=== PATIENT | male | born 1955 | race Caucasian/White ===

== ENCOUNTER 2017-05-05 02:10 | Emergency (ER) | payer OTHER ==
[~2017-05-05] VITALS: Ht 165.1 cm; Wt 54.9 kg
[~2017-05-05 02:10] MED LIST: AVENTYL,PAMELOR25 MG PO; DIOVAN HCT 11 TABLE1; ENDOCET 5-3251 EACH PO; ENDOCET 7.5-501 EACH PO; FENTANYL1 EAC2; HYDROCHLOROTH12.5 M3 PO; METFORMIN HCL500 MG; NITROGLYCERIN0.4 MG; PLAVIX75 MG; PLETAL100 MG; PRILOSEC40 MG; RANITIDINE HCL300 M1 PO; SIMVASTATIN40 MG; TOPROL XL50 MG; VANQUISH CAPLE1 EACH
[2017-05-05 02:53] LABS: HEMATOCRIT 38.3 % (38.0-50.0); HEMOGLOBIN 12.9 G/DL (12.5-16.6); MCH 27.6 PG (29.0-34.0); MCHC 33.7 G/DL (30.0-36.0); MCV 81.8 FL (86-99); PLATELET COUNT 425 K/uL (156-360); RBC DIS.WIDTH-CV 14.4 % (11.8-14.6); RBC DIS.WIDTH-SD 42.5 % (39-53); RED BLOOD COUNT 4.68 M/uL (4.00-5.50); WHITE BLOOD COUNT 11.6 K/uL (4.1-10.2)
[2017-05-05 03:03] LABS: CHLORIDE 101 mEq/L (99-109); POTASSIUM 2.8 mEq/L (3.7-5.4); SODIUM 142 mEq/L (136-147)
[2017-05-05 03:04] LABS: GLUCOSE 109 mg/dL (70-99)
[2017-05-05 03:08] LABS: CREATININE 1.2 mg/dL (0.6-1.3); GFR ESTIMATE (CALCULATED) > 59 mL/min/ (58.99-99999)
[2017-05-05 03:09] LABS: UREA NITROGEN (BUN) 18 mg/dL (9-23)
[2017-05-05] MEDS ORDERED: K-DUR20 MEQ PO (04:49)
[2017-05-05 05:09] LABS: APPEARANCE CLEAR ((CLEAR)); BILIRUBIN NEGATIVE; BLOOD SMALL; COLOR YELLOW ((YELLOW)); GLUCOSE (STRIP) NEGATIVE; KETONES NEGATIVE; LEUKOCYTES NEGATIVE; NITRITE NEGATIVE; PROTEIN (STRIP) NEGATIVE; SPECIFIC GRAVITY 1.035 (1.000-1.030); UROBILINOGEN 0.2 MG/DL (0.2-1.0)
[2017-05-05 05:17] LABS: BACTERIA RARE /HPF; EPITHELIAL CELLS NONE SEEN /HPF; HYALINE CASTS 0-5 /LPF; MUCUS TRACE /LPF; RED BLOOD CELLS 0-5 /HPF (0-5); UCUL ADDED? NO; WHITE BLOOD CELLS 0-5 /HPF (0-5)
[2017-05-05 07:00] VITALS: BP 153/96
== END 2017-05-05 07:52 | disposition home or self-care (01) ==
LOC: EME → EDBD 02:10 → EME 02:10
PROVIDERS: Nurse Practitioner Family
DX: I88.0 Nonspecific mesenteric lymphadenitis (principal); R10.31 Right lower quadrant pain; E87.6 Hypokalemia; I25.2 Old myocardial infarction; M79.7 Fibromyalgia; J44.9 Chronic obstructive pulmonary disease, unspecified; I10 Essential (primary) hypertension; E11.9 Type 2 diabetes mellitus without complications; K21.9 Gastro-esophageal reflux disease without esophagitis; Z89.611 Acquired absence of right leg above knee; Z88.2 Allergy status to sulfonamides; Z87.891 Personal history of nicotine dependence; Z79.02 Long term (current) use of antithrombotics/antiplatelets
CPT/HCPCS: 74177; 80048; 81003; 85027; 99281; 99285; J7030

== ENCOUNTER 2017-05-05 14:56 | Emergency (ER) | payer OTHER ==
[~2017-05-05] VITALS: Ht 162.6 cm; Wt 57.2 kg
[~2017-05-05 14:56] MED LIST changes: +K-DUR20 MEQ PO
[2017-05-05 17:29] LABS: HEMATOCRIT 37.3 % (38.0-50.0); HEMOGLOBIN 12.4 G/DL (12.5-16.6); MCH 27.1 PG (29.0-34.0); MCHC 33.2 G/DL (30.0-36.0); MCV 81.4 FL (86-99); PLATELET COUNT 374 K/uL (156-360); RBC DIS.WIDTH-CV 14.6 % (11.8-14.6); RBC DIS.WIDTH-SD 43.1 % (39-53); RED BLOOD COUNT 4.58 M/uL (4.00-5.50); WHITE BLOOD COUNT 9.6 K/uL (4.1-10.2)
[2017-05-05 17:54] LABS: CHLORIDE 105 mEq/L (99-109); SODIUM 142 mEq/L (136-147)
[2017-05-05 17:56] LABS: GLUCOSE 92 mg/dL (70-99)
[2017-05-05 18:00] LABS: GFR ESTIMATE (CALCULATED) > 59 mL/min/ (58.99-99999)
[2017-05-05 18:01] LABS: UREA NITROGEN (BUN) 14 mg/dL (9-23)
[2017-05-05 18:12] LABS: POTASSIUM 3.6 mEq/L (3.7-5.4)
[2017-05-05 21:55] LABS: APPEARANCE CLEAR ((CLEAR)); BILIRUBIN NEGATIVE; BLOOD MODERATE; COLOR YELLOW ((YELLOW)); GLUCOSE (STRIP) NEGATIVE; KETONES 5; LEUKOCYTES NEGATIVE; NITRITE NEGATIVE; PROTEIN (STRIP) NEGATIVE; SPECIFIC GRAVITY 1.036 (1.000-1.030); UROBILINOGEN 0.2 MG/DL (0.2-1.0)
[2017-05-05 22:02] LABS: BACTERIA NONE SEEN /HPF; EPITHELIAL CELLS RARE /HPF; MUCUS TRACE /LPF; RED BLOOD CELLS 0-5 /HPF (0-5); UCUL ADDED? NO; WHITE BLOOD CELLS 0-5 /HPF (0-5)
[2017-05-05 22:32] VITALS: BP 142/85
== END 2017-05-05 22:33 | disposition home or self-care (01) ==
LOC: EME 14:56
PROVIDERS: Physician Assistant
DX: R10.30 Lower abdominal pain, unspecified (principal); G89.29 Other chronic pain; E11.9 Type 2 diabetes mellitus without complications; Z79.84 Long term (current) use of oral hypoglycemic drugs; Z89.611 Acquired absence of right leg above knee; J44.9 Chronic obstructive pulmonary disease, unspecified; M79.7 Fibromyalgia; I10 Essential (primary) hypertension; I25.2 Old myocardial infarction; K21.9 Gastro-esophageal reflux disease without esophagitis; Z87.891 Personal history of nicotine dependence
CPT/HCPCS: 74177; 80048 91; 81003; 85027; 99281; 99284